=== PATIENT | female | born 1975 | race Caucasian/White ===

== ENCOUNTER 2017-02-07 17:06 | Emergency (ER) | payer OTHER ==
[~2017-02-07] VITALS: Ht 167.6 cm; Wt 116.0 kg
[~2017-02-07 17:06] MED LIST: IBUP800T23 PO; LISI-515 PO; METO25TA3 PO; PROP60CA PO; ULTR50TA PO
[2017-02-07 17:15] VITALS: BP 140/90; PULSE 83; RESP 16; TEMP 97.8; O2SAT 100
[2017-02-07] MEDS ORDERED: PROP20TA3 PO (17:22)
--- NOTE | 2017-02-07 17:29 | PD ---
HPI Chief Complaint: Musculoskeletal Complaint Time Seen by Provider: 17:17 Travel History International Travel<30 days: No Contact w/Intl Traveler<30days: No Traveled to known affect area: No History of Present Illness HPI The patient is a 41-year-old female who presents to the emergency department from [place] [facility] department for an ultrasound of the right lower extremity to rule out DVT. The patient notes a several day history of right knee pain is worse with flexion, mild discomfort with ambulation. The patient apparently was seen at [place] emergency department where she had an x-ray which revealed a large effusion and had a blood test, d-dimer, that was positive. The patient was sent to the emergency department for an ultrasound to rule out DVT. The patient denies any history DVT, PE, recent surgeries, recent hospitalizations, or recent travel. She cannot recall any trauma to the right knee, does have a history of torn meniscus in the left knee. She does have a follow-up appointment with an orthopedic surgeon this Monday. She does note there is swollen but denies any erythema or warmth over the affected knee. She denies any history of gout or pseudogout. She denies any associated fever , chills, or sweats. PFSH Past Medical History Narrative Medical Hypertension Cardiovascular Problems: Yes (hbp) Diminished Hearing: No Hypertension: Yes Migraines: Yes LMP: 01/27/17 : 0 Past Surgical History Cholecystectomy: Yes Social History Alcohol Use: No Tobacco Use: No Substance Use: No Allergies-Medications (Allergen,Severity, Reaction): Coded Allergies: No Known Allergies (Verified Adverse Reaction, Unknown, 02/07/17) Reported Meds & Prescriptions Reported Meds & Active Scripts Active Reported Propranolol (Propranolol HCl) 20 Mg Tab 20 Mg PO Q8HR Lisinopril 20 Mg Tab 20 Mg PO DAILY Review of Systems Except as stated in HPI: all other systems reviewed are Neg General / Constitutional: No: Fever, Chills Cardiovascular: No: Chest Pain or Discomfort Respiratory: No: Shortness of Breath Musculoskeletal: Positive: Limited ROM, Edema, Pain Skin: No Rash Neurologic: No: Paresthesia, Sensory Disturbance Physical Exam Narrative GENERAL: Awake, alert, pleasant 41-year-old female who appears her stated age and is in no acute respiratory distress. SKIN: Focused skin assessment warm/dry. HEAD: Atraumatic. Normocephalic. EYES: No injection or drainage. ENT: No nasal bleeding or discharge. Mucous membranes pink and moist. NECK: Trachea midline. No JVD. CARDIOVASCULAR: Regular rate and rhythm. No murmur appreciated. RESPIRATORY: No accessory muscle use. Clear to auscultation. Breath sounds equal bilaterally. MUSCULOSKELETAL: The right knee is edematous when compared to left knee. Patella is midline. Mild tenderness bilateral the knee. No erythema or calor noted. Negative Homans sign. Positive right dorsalis her pulse. The patient is able flex the knee to 45. Appears to be mild effusion upon inspection. NEUROLOGICAL: Awake and alert. No obvious cranial nerve deficits. Motor grossly within normal limits. Normal speech. PSYCHIATRIC: Appropriate mood and affect; insight and judgment normal. Data Data Last Documented VS Vital Signs Date Time Temp Pulse Resp B/P (MAP) Pulse Ox O2 Delivery O2 Flow Rate FiO2 02/07/17 19:02 77 15 02/07/17 19:01 127/81 (96) 99 02/07/17 17:15 97.8 Orders Orders Us Leg Venous Doppler (02/07/17 ) Synovial Fl Cell Count + Diff (02/07/17 19:29) Synovial Fluid Crystals (02/07/17 19:29) Synovial Fluid Glucose (02/07/17 19:29) Synovial Fluid Total Protein (02/07/17 19:29) Wound Culture And Gram Stain (02/07/17 19:29) MDM Medical Decision Making Medical Screen Exam Complete: Yes Emergency Medical Condition: Yes Medical Record Reviewed: Yes Interpretation(s) Ultrasound is negative for DVT Differential Diagnosis Differential diagnosis includes DVT, knee sprain, knee strain, joint effusion, gout, pseudogout. Narrative Course Ultrasound of the right lower extremity was ordered. The patient declined Tylenol and/or Motrin for pain. Ultrasound was negative for DVT. Bedside ultrasound was performed which revealed an effusion. I had a discussion with the patient regarding the risk and benefits of arthrocentesis under ultrasound guidance. The patient preferred to have an ultrasound-guided arthrocentesis. Therefore, the right knee was draped and prepped in normal sterile fashion, cleaned with Betadine, the superior lateral aspect was anesthetized 1% lidocaine using 27-gauge needle and under ultrasound guidance, using a linear probe, I removed 35 cc of clear yellow fluid. Fluid was sent to lab for analysis. The patient was not required to wait for review of the fluid as we are not suspicious of septic knee. However, she is advised to get her records from medical records prior to her evaluation by her orthopedic surgeon on Monday. She is advised to have the Brian wrap, ibuprofen as needed, return if symptoms worsen or progress. Procedures Procedure Narrative A bedside ultrasound was performed of the right knee which did reveal a right knee effusion. The patient tolerated the procedure without difficulty. There was no obvious complications. An arthrocentesis under ultrasound guidance was performed at bedside using a linear probe. The right knee was draped and prepped in normal sterile fashion, cleaned with Betadine, anesthetized in the superior lateral aspect with 1% lidocaine using a 27-gauge needle. Under ultrasound guidance a 18-gauge needle was placed into the effusion and removed, I removed approximately 35 cc of clear yellow fluid. There is no bleeding. The patient then had a dry sterile dressing and Brian wrap applied to the right knee. The patient tolerated the procedure without difficulty. There is no obvious, occasions. Diagnosis Primary Impression: Effusion, right knee Patient Instructions: General Instructions Additional Instructions: Please provide a patient a copy of her x-ray results and ultrasound results at discharge. Monitor for signs of infection. Go through medical records to obtain your records of fluid analysis prior to your visit with the orthopedist on Monday. Brian wrap as directed. Elevate, ice, and ibuprofen as needed. Return if symptoms worsen or progress. Med/Other Pt SpecificInfo: Prescription(s) given Scripts Ibuprofen (Ibuprofen) 600 Mg Tab 600 MG PO Q6H Y for Pain/Inflammation, #20 TAB 0 Refills Prov: Nate Bhatt MD 02/07/17 Disposition: DISCHARGE HOME Condition: Stable Nate Bhatt MD Feb 07, 2017 17:29
[2017-02-07 19:01] VITALS: BP 127/81; PULSE 76; RESP 12; O2SAT 99
--- NOTE | 2017-02-07 19:19 | RADRPT ---
EXAM DATE/TIME: 02/07/2017 18:15 [facility] COMPARISON: No previous studies available for comparison. INDICATIONS : Right leg pain and elevated D-dimer. MEDICAL HISTORY : Hypertension. Migraines. Scoliosis. SURGICAL HISTORY : Cholecystectomy. ENCOUNTER: Initial ACUITY: 3 days PAIN SCORE: 3/10 LOCATION: Right leg. TECHNIQUE: Venous ultrasound of the leg was performed from the inguinal ligament to the proximal calf. Real-edna e, color Doppler and spectral tracing, compression and augmentation techniques were used. FINDINGS: There is normal compressibility of the deep venous system from the inguinal region to the proximal ca lf. No echogenic clot is seen in the lumen of the common femoral, femoral, popliteal, and posterior tibial veins. There is a normal response of the venous system to proximal and distal augmentation an d respiration. CONCLUSION: The study is negative for lower extremity deep venous thrombosis. Dev Goff MD on February 07, 2017 at 19:16 Board Certified Radiologist. This report was verified electronically.
[2017-02-07] MEDS ORDERED: IBUP-232 PO (19:46)
[2017-02-07 21:37] LABS: WBC, SYNOVIAL FLUID 1965 /MM3 (0-200)
== END 2017-02-07 20:05 ==
LOC: NEPD 17:06
DX: M25.461 Effusion, right knee (principal); M79.604 Pain in right leg; I10 Essential (primary) hypertension
CPT/HCPCS: 20611; 73564; 82945; 84157; 85379; 87070; 87205; 89051; 89060; 93971; 99284